=== PATIENT | male | born 1970 | race Hispanic/Latino ===

== ENCOUNTER 2017-03-31 11:53 | Emergency (ER) | payer MEDICAID ==
[2017-03-31 11:53] VITALS: BMI 36.0
[2017-03-31 12:10] VITALS: TEMP 98.2; O2SAT 97
[2017-03-31 12:12] VITALS: RESP 18
[2017-03-31] MEDS ORDERED: DiphenhydrAMINE 50 mg/ml Inj IVP STA (12:24)
[2017-03-31 12:39] LABS: BASO # 0.04 K/mm3 (0.0-2.0); BASO % 0.4 % (0.0-3.0); EOS # 0.1 (0.0-0.7); GRAN # 6.06 (1.4-6.5); GRAN % 63.3 % (50.0-68.0); HEMATOCRIT 41.8 % (42.0-52.0); LYMPH # 2.8 (1.2-3.4); LYMPH % 28.7 % (22.0-35.0); MEAN CELL VOLUME 89.7 fl (80.0-105.0); MEAN CORPUSCULAR HEMOGLOBIN 30.9 pg (25.0-35.0); MEAN CORPUSCULAR HGB CONC 34.4 g/dl (31.0-37.0); MEAN PLATELET VOLUME 9.5 fl (7.0-11.0); MONO # 0.6 (0.1-0.6); MONO % 6.6 % (1.0-6.0); RED CELL DISTRIBUTION WIDTH 13.4 % (11.5-14.5); WHITE BLOOD COUNT 9.6 10^3/ul (4.5-11.0)
[2017-03-31 12:49] LABS: INR 1.04 (0.93-1.08); PARTIAL THROMBOPLASTIN TIME 27.6 Seconds (25.1-36.5)
[2017-03-31 12:50] LABS: BLOOD UREA NITROGEN 17 mg/dL (7-21); CALCIUM 9.3 mg/dL (8.4-10.5); CARBON DIOXIDE 29 mmol/L (21-33); CHLORIDE 103 mmol/L (98-107); GFR AFRICAN-AMERICAN > 60; GLUCOSE,RANDOM 94 mg/dL (70-110); POTASSIUM 4.4 mmol/L (3.6-5.0); SODIUM 139 mmol/L (132-148)
--- NOTE | 2017-03-31 13:13 | ED PDOC ---
Arrival/HPI - General Chief Complaint: Headache Time Seen by Provider: 03/31/17 12:12 Historian: Patient, Family - History of Present Illness Narrative History of Present Illness (Text): 03/31/17 12:15 A 46 year old male, whose past medical history includes alcohol abuse, presents to the emergency department for intermittent headaches, which began 10 days ago. The patient states he was bending over 10 days again when he got a severe throbbing headache in his temples and felt dizzy. He admits to taking 4 ibuprofens to help with the pain, but it didn't help immediately and the headache went away the next day. 3 days later he had a very similar headache, but it wasn't as strong, did not last as long and did not involve dizziness. Since then he has been having intermittent headaches every couple of days. He notes his last headache began yesterday and is still present today. He notes the headache started at the back of the head and radiates to the front of the head. He admits to having light sensitivity and he denies fevers, vision changes , gait changes, cough, congestion, or any other complaints at this time. Last Advil was taken yesterday. PMD: Dr. Robins Time/Duration: > week (x 10 days) Symptom Course: Intermittent Quality: Pressure, Throbbing Activities at Onset: Light Context: Home Past Medical History - Provider Review Nursing Documentation Reviewed: Yes - Infectious Disease Hx of Infectious Diseases: None - Tetanus Immunization Tetanus Immunization: Unknown - Past Medical History Past Medical History: No Previous - Cardiac Hx Cardiac Disorders: No - Pulmonary Hx Respiratory Disorders: No - Neurological Hx Neurological Disorder: No - HEENT Hx HEENT Disorder: No - Renal Hx Renal Disorder: No - Endocrine/Metabolic Hx Endocrine Disorders: No - Hematological/Oncological Hx Blood Disorders: No - Integumentary Hx Dermatological Disorder: No - Musculoskeletal/Rheumatological Hx Musculoskeletal Disorders: No Hx Falls: No - Gastrointestinal Hx Diverticulitis: Yes - Genitourinary/Gynecological Hx Genitourinary Disorders: No - Psychiatric Hx Psychophysiologic Disorder: No Hx Depression: No Hx Emotional Abuse: No Hx Substance Use: No - Past Surgical History Past Surgical History: No Previous - Anesthesia Hx Anesthesia: No Hx Anesthesia Reactions: No Hx Malignant Hyperthermia: No - Suicidal Assessment Feels Threatened In Home Enviroment: No Family/Social History - Physician Review Nursing Documentation Reviewed: Yes Family/Social History: No Known Family HX Smoking Status: Light Smoker < 10 Cigarettes Daily Hx Alcohol Use: No (quit 4 days ago) Hx Substance Use: No Allergies/Home Meds Allergies/Adverse Reactions: Allergies No Known Allergies Allergy (Verified 06/19/16 10:23) Home Medications: Home Meds Medication Instructions Recorded Confirmed No Known Home Med 03/31/17 03/31/17 Review of Systems - Physician Review All systems were reviewed & negative as marked: Yes - Review of Systems Constitutional: absent: Fevers Eyes: absent: Vision Changes ENT: absent: Sinus Congestion Respiratory: absent: Cough Neurological: Headache. absent: Gait Changes Physical Exam Vital Signs Reviewed: Yes Vital Signs Temp Pulse Resp BP Pulse Ox 03/31/17 15:06 61 18 118/71 97 03/31/17 13:35 58 L 18 122/79 97 03/31/17 12:12 98.2 F 55 L 18 124/84 97 03/31/17 12:00 98.2 F 55 L 16 124/84 97 Temperature: Afebrile Blood Pressure: Normal Pulse: Regular Respiratory Rate: Normal Appearance: Positive for: Well-Appearing, Non-Toxic, Comfortable Pain Distress: None Mental Status: Positive for: Alert and Oriented X 3 - Systems Exam Head: Present: Atraumatic, Normocephalic Pupils: Present: PERRL Extroacular Muscles: Present: EOMI Conjunctiva: Present: Normal Ears: Present: Normal Mouth: Present: Moist Mucous Membranes Pharnyx: Present: Normal Nose (External): Present: Atraumatic Nose (Internal): Present: Normal Inspection Neck: Present: Normal Range of Motion Respiratory/Chest: Present: Clear to Auscultation, Good Air Exchange. No: Respiratory Distress, Accessory Muscle Use Cardiovascular: Present: Regular Rate and Rhythm, Normal S1, S2. No: Murmurs Abdomen: Present: Normal Bowel Sounds. No: Tenderness, Distention, Peritoneal Signs Back: Present: Normal Inspection Upper Extremity: Present: Normal Inspection. No: Cyanosis, Edema Lower Extremity: Present: Normal Inspection. No: Edema Neurological: Present: GCS=15, CN II-XII Intact, Speech Normal, Motor Func Grossly Intact, Normal Sensory Function, Gait Normal, Memory Normal Skin: Present: Warm, Dry, Normal Color. No: Rashes Psychiatric: Present: Alert, Oriented x 3, Normal Insight, Normal Concentration Medical Decision Making ED Course and Treatment: 03/31/17 12:20 Impression: A 46 year old male with headaches. Differential Diagnosis included but are not limited to: Migraine vs. Tension headache vs. Subarachnoid hemorrhage vs. Aneurysm Plan: -- Angio CT -- Head CT -- Labs -- Tylenol, Reglan, Benadryl -- Reassess and disposition Patient came with a prescription from an Urgent Care said r/o Unruptured Aneursym Progress Notes: 03/31/17 15:11 PROCEDURE: CT HEAD WITHOUT CONTRAST. Bank Clerk : Tad Banegas MD Report Date : 03/31/2017 14:21:50 PROCEDURE: CT HEAD WITHOUT CONTRAST. HISTORY:headache r/o ICH FINDINGS: HEMORRHAGE:No intracranial hemorrhage. BRAIN:No mass effect or edema. No atrophy or chronic microvascular ischemic changes. VENTRICLES:Unremarkable. No hydrocephalus. CALVARIUM:Unremarkable. PARANASAL SINUSES:Unremarkable as visualized. No significant inflammatory changes. MASTOID AIR CELLS:Unremarkable as visualized. No inflammatory changes. OTHER FINDINGS:Evidence of old and healed nasal bone fractures. IMPRESSION: No acute intracranial abnormalities. No significant findings to account for the clinical presentation. No significant interval change compared to the prior examination(s). 03/31/17 15:11 Procedure: CT Angiography of neck with contrast Impression: Unremarkable CT angio of the brain. 03/31/17 15:33 Lumbar Puncture Refusal I explained the CT results to the patient on how there is still a 5% chance of a subarachnoid hemorrhage. I explained to the patient the need for a lumbar puncture and explained the risks of a subarachnoid hemorrhage. The patient refuses to get a lumbar puncture at this time, he states his headache has resolved. On reevaluation, headache has resolved and patient has no symptoms. He denies any numbness or weakness. No dizziness or lightheadedness. He is able to walk around with no complications. He will be discharged home with close follow up with his primary care doctor. He was advised to return to the ED if symptoms worsen or any other concern. - Lab Interpretations Lab Results: 03/31/17 12:30 03/31/17 12:30 Lab Results 03/31/17 12:30: Sodium 139, Potassium 4.4, Chloride 103, Carbon Dioxide 29, Anion Gap 11, BUN 17, Creatinine 0.8, Est GFR ( Amer) > 60, Est GFR (Non- Af Amer) > 60, Random Glucose 94, Calcium 9.3 03/31/17 12:30: PT 11.5, INR 1.04, APTT 27.6 03/31/17 12:30: WBC 9.6 D, RBC 4.66, Hgb 14.4, Hct 41.8 L, MCV 89.7, MCH 30.9, MCHC 34.4, RDW 13.4, Plt Count 319, MPV 9.5, Gran % 63.3, Lymph % (Auto) 28.7, [place] % (Auto) 6.6 H, Eos % (Auto) 1.0 L, Baso % (Auto) 0.4, Gran # 6.06, Lymph # 2.8, [place] # 0.6, Eos # 0.1, Baso # 0.04 - RAD Interpretation Radiology Orders: 03/31/17 12:22 HEAD W/O CONTRAST [CT] Stat 03/31/17 12:23 ANGIO [CTA HEAD & NECK BUNDLE] [CT] Stat - Medication Orders Current Medication Orders: Discontinued Medications Acetaminophen (Tylenol 325mg Tab) 975 mg PO STAT STA Stop: 03/31/17 12:25 Last Admin: 03/31/17 12:54 Dose: 975 mg MAR Pain/Vitals Document 03/31/17 12:54 SE (Rec: 03/31/17 12:54 SE [id number]) Pain Reassessment Is This A Pain ReAssessment? No Sleep Is patient sleeping during reassessment? No Presence of Pain Presence of Pain Yes Pain Scale Used Pain Scale Used Numeric Location Pain Location Body Purchasing Officer Diphenhydramine HCl (Benadryl) 25 mg IVP STAT STA Stop: 03/31/17 12:25 Last Admin: 03/31/17 12:43 Dose: 25 mg IVP Administration Document 03/31/17 12:43 SE (Rec: 03/31/17 12:43 SE [id number]) Charges for Administration # of IVP Administrations 1 Metoclopramide HCl (Reglan) 10 mg IVP STAT STA Stop: 03/31/17 12:25 Last Admin: 03/31/17 12:43 Dose: 10 mg IVP Administration Document 03/31/17 12:43 SE (Rec: 03/31/17 12:44 SE [id number]) Charges for Administration # of IVP Administrations 1 - Scribe Statement The provider has reviewed the documentation as recorded by the Ileana Colvin Provider Scribe Attestation: All medical record entries made by the Scribe were at my direction and personally dictated by me. I have reviewed the chart and agree that the record accurately reflects my personal performance of the history, physical exam, medical decision making, and the department course for this patient. I have also personally directed, reviewed, and agree with the discharge instructions and disposition. Disposition/Present on Arrival - Present on Arrival Any Indicators Present on Arrival: No History of DVT/PE: No History of Uncontrolled Diabetes: No Urinary Catheter: No History of Decub. Ulcer: No History Surgical Site Infection Following: None - Disposition Have Diagnosis and Disposition been Completed?: Yes Diagnosis: Headache Disposition: HOME/ ROUTINE Disposition Time: 16:06 Patient Plan: Discharge Condition: IMPROVED Discharge Instructions (ExitCare): Acute Headache (ED) Additional Instructions: Mr Bentley, thank you for letting us take care of you today. Your provider was Dr. Chan. You were treated for Headache. The emergency medical care you received today was directed at your acute symptoms. If you were prescribed any medication, please fill it and take as directed. It may take several days for your symptoms to resolve. Return to the Emergency Department if your symptoms worsen, do not improve, or if you have any other problems. Please contact your doctor or call one of the physicians/clinics you have been referred to that are listed on the Patient Visit Information form that is included in your discharge packet. Bring any paperwork you were given at discharge with you along with any medications you are taking to your follow up visit. Our treatment cannot replace ongoing medical care by a primary care provider (PCP) outside of the emergency department. [facility]. If you had an X-Ray or CT scan: A Radiologist will review the ED reading if any change in treatment is needed we will contact you. If you had a blood, urine, or wound culture: It will take several days for the results, if any change in treatment is needed we will contact you. If you had an STI test: It will take 48 hours for the results. Please call after 1 week if you have not heard back. Referrals: Toby Robins MD [Primary Care Provider] - Follow up with primary Forms: [employer] (Nepalese), WORK NOTE
[2017-03-31] MEDS ORDERED: Iohexol 350 MG/100 ML VIAL ONE (13:34)
--- NOTE | 2017-03-31 14:23 | CT ---
PROCEDURE: CT HEAD WITHOUT CONTRAST. HISTORY: headache r/o ICH COMPARISON: 824.6 TECHNIQUE: Axial computed tomography images were obtained through the head/brain without intravenous contrast. Radiation dose: Total exam DLP = 736.81 mGy-cm. This CT exam was performed using one or more of the following dose reduction techniques: Automated exposure control, adjustment of the mA and/or kV according to patient size, and/or use of iterative reconstruction technique. FINDINGS: HEMORRHAGE: No intracranial hemorrhage. BRAIN: No mass effect or edema. No atrophy or chronic microvascular ischemic changes. VENTRICLES: Unremarkable. No hydrocephalus. CALVARIUM: Unremarkable. PARANASAL SINUSES: Unremarkable as visualized. No significant inflammatory changes. MASTOID AIR CELLS: Unremarkable as visualized. No inflammatory changes. OTHER FINDINGS: Evidence of old and healed nasal bone fractures. IMPRESSION: No acute intracranial abnormalities. No significant findings to account for the clinical presentation. No significant interval change compared to the prior examination(s).
[2017-03-31 15:06] VITALS: BP 118/71; PULSE 61
--- NOTE | 2017-03-31 15:07 | CT ---
PROCEDURE: CT Angiography of the neck with contrast HISTORY: headache dizziness r/o aneurysm COMPARISON: None available. TECHNIQUE: Contiguous axial images of the neck were obtained from the level of the skull-base to the superior mediastinum in the arteriographic phase of enhancement. Coronal and sagittal reformats or also generated. IV contrast dose: 100 cc of Omni 350 Radiation Dose - DLP: 640 mGy-cm This CT exam was performed using one or more of the following dose reduction techniques: Automated exposure control, adjustment of the mA and/or kV according to patient size, and/or use of iterative reconstruction technique. FINDINGS: RIGHT CAROTID ARTERIES: Common Carotid Artery: Normal. Carotid Bifurcation: Normal. Internal Carotid Artery:Normal. External Carotid Artery (proximal branches): Normal. LEFT CAROTID ARTERIES: Common Carotid Artery: Normal. Carotid Bifurcation: Normal. Internal Carotid Artery:Normal. External Carotid Artery (proximal branches): Normal. VERTEBRAL ARTERIES: Right Vertebral Artery: Normal. Left Vertebral Artery: Normal. OTHER FINDINGS: None. IMPRESSION: Normal CT Angiography of the neck. PROCEDURE: CT Angiography of the Brain. HISTORY: headache dizziness r/o aneurysm COMPARISON: None available. TECHNIQUE: CT angiography of the intracranial arteries was performed. Coronal and sagittal maximum intensity projection reformated images were generated. This CT exam was performed using one or more of the following dose reduction techniques: Automated exposure control, adjustment of the mA and/or kV according to patient size, and/or use of iterative reconstruction technique. FINDINGS: INTERNAL CEREBRAL ARTERIES: Unremarkable. The skull base, petrous, cavernous and supraclinoid segments are bilaterally widely patent. ANTERIOR CEREBRAL ARTERIES: Unremarkable. A1 and A2 segments are widely patent. Smaller distal branches unremarkable, as visualized. MIDDLE CEREBRAL ARTERIES: Unremarkable. M1 and M2 segments are widely patent. Perisylvian branches grossly symmetric. POSTERIOR CIRCULATION: Basilar Artery: Unremarkable. Distal Vertebral Arteries: Unremarkable. Posterior Cerebral Arteries: Unremarkable. Posterior Inferior Cerebellar Arteries: Unremarkable. ANEURYSM/ VASCULAR MALFORMATIONS: None. OTHER FINDINGS: None. IMPRESSION: Unremarkable CT Angiography of the Brain.
== END 2017-03-31 16:06 | disposition home or self-care (01) ==
LOC: ED 11:53
DX: R51 Headache (principal); F17.210 Nicotine dependence, cigarettes, uncomplicated
CPT/HCPCS: 70450; 70496; 70498; 80048; 85025; 85610; 85730; 96374; 96375; 99285; J1200; J2765; Q9967